=== PATIENT | male | born 1990 | race American Indian/Alaskan Native ===

== ENCOUNTER 2017-05-18 09:32 | Emergency (ER) | payer MEDICAID, OTHER ==
[2017-05-18] MEDS ORDERED: Fluorescein 1 MG Ophth Strip EYERT ONE (09:39)
[2017-05-18] MEDS ORDERED: Tetracaine HCl/PF 0.5% 4 ML Bottle EYERT ONE (09:39)
[2017-05-18 09:42] VITALS: BP 143/94
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
[2017-05-18] MEDS ORDERED: Bacitracin/Polymyxin B Ophth Oint 3.5 GM Tube ONE (10:09)
[2017-05-18] MEDS ORDERED: Bacitracin/Polymyxin B Ophth Oint 3.5 GM Tube EYERT SCH (14:00)
== END 2017-05-18 10:15 | disposition home or self-care (01) ==
LOC: DL.ED 09:32
DX: S05.01XA Injury of conjunctiva and corneal abrasion without foreign body, right eye, initial encounter (principal); S00.211A Abrasion of right eyelid and periocular area, initial encounter; F17.210 Nicotine dependence, cigarettes, uncomplicated; W22.8XXA Striking against or struck by other objects, initial encounter
CPT/HCPCS: 99283; A9270

== ENCOUNTER 2017-05-25 20:37 | Emergency (ER) | payer OTHER ==
[2017-05-25 22:30] VITALS: BP 131/87
[2017-05-25] MEDS ORDERED: cefTRIAXone 1 GM, Lidocaine 1% 2.1 ML IM ONE ×2 (23:57)
--- NOTE | 2017-05-26 00:02 | EDM.PDOC ---
ED HPI GENERAL MEDICAL PROBLEM - General Chief Complaint: Skin Complaint Stated Complaint: FINGER IS INFECTED, [id number] Time Seen by Provider: 05/25/17 22:40 Source of Information: Reports: Patient History Limitations: Reports: No Limitations - History of Present Illness INITIAL COMMENTS - FREE TEXT/NARRATIVE: ED with c/o wood sliver in tip of finger,Was seen at [facility] yesterday, Given antibiotic ointment to put on finger. Increased swelling tonight. No fever or chills. Treatments [employer]: Reports: Other Medication(s) Right Middle Hand Pain Score (Numeric/FACES): 5 - Related Data Allergies Allergy/AdvReac Type Severity Reaction Status Date / Time No Known Allergies Allergy Verified 05/25/17 22:29 Home Meds: Home Meds Sulfamethoxazole/Trimethoprim [Bactrim Ds Tablet] 1 each PO BID 05/25/17 [ History] Past Medical History - Past Health History Medical/Surgical History: Denies Medical/Surgical History HEENT History: Reports: None Cardiovascular History: Reports: None Respiratory History: Reports: None Gastrointestinal History: Reports: None Genitourinary History: Reports: None Musculoskeletal History: Reports: None Neurological History: Reports: None Psychiatric History: Reports: None Endocrine/Metabolic History: Reports: None Hematologic History: Reports: None Immunologic History: Reports: None Oncologic (Cancer) History: Reports: None Dermatologic History: Reports: None - Infectious Disease History Infectious Disease History: Reports: None Social & Family History - Family History Family Medical History: Noncontributory - Tobacco Use Smoking Status *Q: Current Some Day Smoker Years of Tobacco use: 5 Packs/Tins Daily: 0.2 - Caffeine Use Caffeine Use: Reports: Soda - Recreational Drug Use Recreational Drug Use: Yes Drug Use in Last 12 Months: Yes Recreational Drug Type: Reports: Marijuana/Hashish ED ROS GENERAL - Review of Systems Review Of Systems: ROS reveals no pertinent complaints other than HPI. ED EXAM, SKIN/RASH Exam: See Below Exam Limited By: No Limitations General Appearance: Alert, No Apparent Distress Eye Exam: Bilateral Eye: EOMI Ears: Normal External Exam Nose: Normal Inspection Throat/Mouth: Normal Inspection Head: Atraumatic, Normocephalic Neck: Normal Inspection Respiratory/Chest: No Respiratory Distress, Lungs Clear Cardiovascular: Regular Rate, Rhythm Extremities: Redness (Redness to 3rd finger-right swelling MIP to distal. open wound distal tip 3mm, no drainage. ) Neurological: Alert, Oriented, Normal Cognition Psychiatric: Normal Affect Skin: Warm, Dry, Erythema Course - Vital Signs Last Recorded V/S: Last Vital Signs Temp 98.4 F 05/25/17 22:27 Pulse 116 H 05/25/17 22:27 Resp 16 05/25/17 22:27 BP 131/87 05/25/17 22:27 Pulse Ox 100 05/25/17 22:27 - Orders/Labs/Meds Meds: Medications Discontinued Medications Generic Name Dose Route Start Last Admin Trade Name Estela PRN Reason Stop Dose Admin Ceftriaxone Sodium 1 gm/ 0 gm 05/25/17 23:57 05/26/17 00:06 Lidocaine HCl 2.1 ml IM 05/25/17 23:58 1 inj ONETIME ONE Administration Departure - Departure Time of Disposition: 23:59 Disposition: Home, Self-Care 01 Condition: Fair Clinical Impression: Cellulitis Qualifiers: Site of cellulitis: extremity Site of cellulitis of extremity: finger Laterality: right Qualified Code(s): L03.011 - Cellulitis of right finger - Discharge Information Instructions: Cellulitis, Adult, [id number] Referrals: PCP,None [Primary Care Provider] - Forms: ED Department Discharge Additional Instructions: warm soak to finger three times daily with soap cover with dressing with antibiotic oinment, change three times daily Continue current antibiotic, Keflex 500mg one 4 times daily for one week tylenol or ibuprofen for discomfort clinic recheck MONDAY fOLLOW up sooner if increasing redness swelling and streaking in am.
== END 2017-05-26 00:23 | disposition home or self-care (01) ==
LOC: DL.ED 20:37
DX: L03.011 Cellulitis of right finger (principal); F17.210 Nicotine dependence, cigarettes, uncomplicated
CPT/HCPCS: 73140; 87070; 87077; 87186; 96372; 99284; J0696; 99283